=== PATIENT | male | born 1985 | race Caucasian/White ===

== ENCOUNTER 2016-11-16 08:16 | Emergency (ER) | payer OTHER ==
[~2016-11-16] VITALS: Ht 188 cm; Wt 81.5 kg
[~2016-11-16 08:16] MED LIST: ZOFR4TAB3 SL
[2016-11-16 08:17] VITALS: BP 160/93; PULSE 144; RESP 20; TEMP 97.5; O2SAT 98
[2016-11-16 08:23] VITALS: BP 155/81; PULSE 150; RESP 20; O2SAT 95
[2016-11-16] MEDS ORDERED: ADENOSINE IV SOLN 3 MG/ML 2 ML VIAL ONE ×2 (08:29→08:35)
[2016-11-16 08:43] VITALS: BP 145/84; PULSE 140; RESP 19; O2SAT 97
[2016-11-16] MEDS ORDERED: ADENOSINE IV SOLN 3 MG/ML 2 ML VIAL IV PUSH ONE (08:45)
[2016-11-16] MEDS ORDERED: SODIUM CHLORIDE 0.9% FLUSH 10 ML FLUSH IVF PRN ×2 (08:45→09:00)
[2016-11-16] MEDS: ADENOSINE IV SOLN 3 MG/ML 2 ML VIAL IV PUSH ONE ×2 (08:57→09:01)
[2016-11-16] MEDS ORDERED: DILTIAZEM HCL 25 MG/5 ML VIAL IV PUSH ONE (09:00)
[2016-11-16] MEDS ORDERED: SODIUM CHLOR 0.9% 1000 ML INJ 1,000 ML IV ONE (09:00)
--- NOTE | 2016-11-16 09:01 | PD ---
HPI Chief Complaint: Cardiac Complaint Time Seen by Provider: 08:40 Travel History International Travel<30 days: No Contact w/Intl Traveler<30days: No Traveled to known affect area: No History of Present Illness HPI 31-year-old male patient with no significant past medical issues, presents to the ER today because of palpitations and lightheadedness starting last night. He denies any chest pains or shortness of breath. He states that he just feels the fluttering. He denies any previous history. He denies any family history of cardiac issues are send . Modifying Factors: None Associated Signs & Symptoms: Palpitations Risk Factors: None PFSH Past Medical History Medical History: Denies Significant Hx Diminished Hearing: No Past Surgical History Appendectomy: Yes Social History Alcohol Use: Yes Tobacco Use: Yes Substance Use: Yes (Marijuana) Allergies-Medications (Allergen,Severity, Reaction): Coded Allergies: Codeine (Verified Allergy, Intermediate, 04/25/16) vomiting Reported Meds & Prescriptions Reported Meds & Active Scripts Active Zofran Odt (Ondansetron Odt) 4 Mg Tab 4 Mg SL Q6HR PRN Review of Systems Except as stated in HPI: all other systems reviewed are Neg Physical Exam Narrative GENERAL: Well-developed young white male patient currently in mild distress. Awake and oriented 3. SKIN: Focused skin assessment warm/dry. HEAD: Atraumatic. Normocephalic. EYES: Pupils equal and round. No scleral icterus. No injection or drainage. ENT: No nasal bleeding or discharge. Mucous membranes pink and moist. NECK: Trachea midline. No JVD. CARDIOVASCULAR: Fast and irregularly irregular. RESPIRATORY: No accessory muscle use. Clear to auscultation. Breath sounds equal bilaterally. GASTROINTESTINAL: Abdomen soft, non-tender, nondistended. Hepatic and splenic margins not palpable. MUSCULOSKELETAL: No obvious deformities. No clubbing. No cyanosis. No edema. NEUROLOGICAL: Awake and alert. No obvious cranial nerve deficits. Motor grossly within normal limits. Normal speech. PSYCHIATRIC: Appropriate mood and affect; insight and judgment normal. Data Data Last Documented VS Vital Signs Date Time Temp Pulse Resp B/P Pulse Ox O2 Delivery O2 Flow Rate FiO2 11/16/16 09:23 95 Nasal Cannula 2 11/16/16 09:12 85 20 141/60 11/16/16 08:17 97.5 Orders Electrocardiogram (11/16/16 ) Adenosine Inj (Adenocard Inj) (11/16/16 08:29) Adenosine Inj (Adenocard Inj) (11/16/16 08:35) Complete Blood Count With Diff (11/16/16 08:40) Comprehensive Metabolic Panel (11/16/16 08:40) Magnesium (Mg) (11/16/16 08:40) Prothrombin Time / Inr (Pt) (11/16/16 08:40) Act Partial Throm Time (Ptt) (11/16/16 08:40) Chest, Single Ap (11/16/16 08:40) Ecg Monitoring (11/16/16 08:40) Bilateral Bp Monitoring (11/16/16 08:40) Iv Access Insert/Monitor (11/16/16 08:40) Oximetry (11/16/16 08:40) Oxygen Administration (11/16/16 08:40) Sodium Chloride 0.9% Flush (Ns Flush) (11/16/16 08:45) Adenosine Inj (Adenocard Inj) (11/16/16 08:45) Adenosine Inj (Adenocard Inj) (11/16/16 08:45) Sodium Chlor 0.9% 1000 Ml Inj (Ns 1000 M (11/16/16 09:00) Diltiazem Inj (Cardizem Inj) (11/16/16 09:00) Sodium Chloride 0.9% Flush (Ns Flush) (11/16/16 09:00) Drug Screen, Random Urine (11/16/16 08:57) Labs Laboratory Tests Test 11/16/16 11/16/16 08:30 09:15 White Blood Count 9.5 TH/MM3 Red Blood Count 5.44 MIL/MM3 Hemoglobin 16.5 GM/DL Hematocrit 49.0 % Mean Corpuscular Volume 90.1 FL Mean Corpuscular Hemoglobin 30.3 PG Mean Corpuscular Hemoglobin 33.7 % Concent Red Cell Distribution Width 13.5 % Platelet Count 223 TH/MM3 Mean Platelet Volume 9.1 FL Neutrophils (%) (Auto) 68.0 % Lymphocytes (%) (Auto) 22.5 % Monocytes (%) (Auto) 7.7 % Eosinophils (%) (Auto) 0.9 % Basophils (%) (Auto) 0.9 % Neutrophils # (Auto) 6.5 TH/MM3 Lymphocytes # (Auto) 2.1 TH/MM3 Monocytes # (Auto) 0.7 TH/MM3 Eosinophils # (Auto) 0.1 TH/MM3 Basophils # (Auto) 0.1 TH/MM3 CBC Comment DIFF FINAL Differential Comment Prothrombin Time 11.4 SEC Prothromb Time International 1.0 RATIO Ratio Activated Partial 25.7 SEC Thromboplast Time Sodium Level 140 MEQ/L Potassium Level 3.9 MEQ/L Chloride Level 108 MEQ/L Carbon Dioxide Level 25.1 MEQ/L Anion Gap 7 MEQ/L Blood Urea Nitrogen 9 MG/DL Creatinine 1.01 MG/DL Estimat Glomerular Filtration 86 ML/MIN Rate Random Glucose 91 MG/DL Calcium Level 9.0 MG/DL Magnesium Level 1.9 MG/DL Total Bilirubin 0.3 MG/DL Aspartate Amino Transf 18 U/L (AST/SGOT) Alanine Aminotransferase 26 U/L (ALT/SGPT) Alkaline Phosphatase 66 U/L Total Protein 7.4 GM/DL Albumin 4.0 GM/DL Urine Opiates Screen NEG Urine Barbiturates Screen NEG Urine Amphetamines Screen NEG Urine Benzodiazepines Screen NEG Urine Cocaine Screen NEG Urine Cannabinoids Screen POS MDM Medical Decision Making Medical Screen Exam Complete: Yes Emergency Medical Condition: Yes Medical Record Reviewed: Yes Interpretation(s) EKG shows a narrow complex tachycardia at a rate of 160 bpm with no signs of acute ST-T changes. Differential Diagnosis Palpitationsdysrhythmias versus dehydration versus medication side effect versus metabolic issues Narrative Course Patient was initially given adenosine 6 and then 12 with no break in the rhythm. There was some noted slowing with adenosine and there is a question of whether there are some underlying flutter waves. However, the slowing all lasted a few beats and it is not clear. Cardizem was given in the ER. And his heart rate slowed down to the 100s and later on to the 60s. He reports feeling well. Vital signs are stable on reevaluation at 10:30 AM. In view of the rhythm strip at this point shows that he is back in normal sinus rhythm at a rate of 66 70 bpm. At this point, my plan would be to release him with follow- up to cardiology. Return for any new issues as needed. The plan has discussed with him and he states understanding. Diagnosis Primary Impression: SVT (supraventricular tachycardia) Disposition: 01 DISCHARGE HOME Condition: Stable Gypsy Luna MD Nov 16, 2016 09:01
[2016-11-16 09:07] VITALS: BP 146/81; PULSE 137
[2016-11-16 09:12] VITALS: BP 141/60; PULSE 85; RESP 20; O2SAT 95
--- NOTE | 2016-11-16 09:33 | RADRPT ---
EXAM DATE/TIME: 11/16/2016 09:20 [facility] COMPARISON: No previous studies available for comparison. INDICATIONS : Palpitations today. MEDICAL HISTORY : None. SURGICAL HISTORY : None. ENCOUNTER: Initial ACUITY: 1 day PAIN SCORE: 06/21 LOCATION: Bilateral chest FINDINGS: A single view of the chest demonstrates the lungs to be symmetrically aerated without evidence of mas s, infiltrate or effusion. The cardiomediastinal contours are unremarkable. Osseous structures are intact. CONCLUSION: No acute disease. Richie Huddleston Jr., MD on November 16, 2016 at 9:31 Board Certified Radiologist. This report was verified electronically.
[2016-11-16 09:43] LABS: AUTOMATED NEUTROPHIL # 6.5 TH/MM3 (1.8-7.7); BASOPHIL # 0.1 TH/MM3 (0-0.2); BASOPHIL % 0.9 % (0.0-2.0); EOSINOPHIL # 0.1 TH/MM3 (0-0.4); EOSINOPHIL % 0.9 % (0.0-4.0); HEMO FLAGS DIFF FINAL; LYMPH % 22.5 % (9.0-44.0); LYMPHOCYTE # 2.1 TH/MM3 (1.0-4.8); MEAN CELL VOLUME 90.1 FL (80.0-100.0); MEAN CORPUSCULAR HEMOGLOBIN 30.3 PG (27.0-34.0); MEAN CORPUSCULAR HGB CONC 33.7 % (32.0-36.0); MONO % 7.7 % (0.0-8.0); PLATELET COUNT 223 TH/MM3 (150-450); RED BLOOD COUNT 5.44 MIL/MM3 (4.50-5.90); RED CELL DISTRIBUTION WIDTH 13.5 % (11.6-17.2); WHITE BLOOD COUNT 9.5 TH/MM3 (4.0-11.0)
[2016-11-16 09:50] LABS: APTT (PATIENT) 25.7 SEC (24.3-30.1); PROTHROMBIN TIME - PATIENT 11.4 SEC (9.8-11.6)
[2016-11-16 09:54] LABS: ALT (GPT) 26 U/L (12-78)
[2016-11-16 09:57] LABS: ALKALINE PHOSPHATASE 66 U/L (45-117); TOTAL BILIRUBIN ADULT 0.3 MG/DL (0.2-1.0)
[2016-11-16 10:15] LABS: ANION GAP 7 MEQ/L (5-15); AST (GOT) 18 U/L (15-37); BICARBONATE 25.1 MEQ/L (21.0-32.0); BLOOD UREA NITROGEN 9 MG/DL (7-18); CHLORIDE 108 MEQ/L (98-107); GLOMERULAR FILTRATION RATE 86 ML/MIN (>89); MAGNESIUM 1.9 MG/DL (1.5-2.5); POTASSIUM 3.9 MEQ/L (3.5-5.1); SODIUM (NA) 140 MEQ/L (136-145)
[2016-11-16 10:16] LABS: AMPHETAMINE, URINE NEG (NEG); BARBITURATES, URINE NEG (NEG); COCAINE, URINE NEG (NEG)
[2016-11-16] MEDS ORDERED: ASPI81CH37 CHEW (11:12)
[2016-11-16] MEDS ORDERED: CARD120T4 PO (11:12)
--- NOTE | 2016-11-16 14:45 | EKG ---
Date Performed: 11/16/2016 Time Performed: 09:13:32 PTAGE: 31 years EKG: ATRIAL FIBRILLATION INFERIOR MYOCARDIAL INFARCTION ABNORMAL ECG INTERPRETATION BASED ON A D EFAULT AGE OF 40 YEARS Compared to the PREVIOUS TRACING from 11/16/16826, rate has decreased DOCTOR: Pedro Baxter Interpretating Date/Time 11/16/2016 14:44:02
--- NOTE | 2016-11-16 14:49 | EKG ---
Date Performed: 11/16/2016 Time Performed: 08:27:50 PTAGE: 31 years EKG: ATRIAL FIBRILLATION WITH RAPID VENTRICULAR RESPONSE NONSPECIFIC T-WAVE ABNORMALITY ABNORMAL RHYTHM ECG NO PREVIOUS TRACING DOCTOR: Pedro Baxter Interpretating Date/Time 11/16/2016 14:48:55
== END 2016-11-16 11:44 | disposition home or self-care (01) ==
LOC: NEPE 08:16
DX: I47.1 Supraventricular tachycardia (principal); I48.91 Unspecified atrial fibrillation; F12.90 Cannabis use, unspecified, uncomplicated; Z72.0 Tobacco use
CPT/HCPCS: 71010; 80053; 80307; 83735; 85025; 85610; 85730; 93005; 96361; 96374; 96375; 99291; J0153; J7030